=== PATIENT | female | born 1940 | race Caucasian/White ===

== ENCOUNTER 2020-01-11 12:48 | Emergency (ER) | payer BC, MEDICARE ==
[~2020-01-11] VITALS: Ht 154.9 cm; Wt 49.9 kg
[2020-01-11] MEDS ORDERED: CHOL-9 PO (13:02)
[2020-01-11] MEDS ORDERED: ALEN70SO3 PO (13:02)
[2020-01-11] MEDS ORDERED: ASPI81TA31 PO (13:02)
[2020-01-11] MEDS ORDERED: AMLO5TAB9 PO (13:02)
[2020-01-11] MEDS ORDERED: ATOR20TA PO (13:02)
[2020-01-11 13:27] LABS: BASOPHILS % (AUTO) 0.8 % (0.0-2.0); EOSINOPHILS # (AUTO) 0.1 K/uL (0.0-0.7); HEMATOCRIT 37.9 % (31.2-41.9); HEMOGLOBIN 12.6 g/dL (10.9-14.3); LYMPHOCYTES # (AUTO) 1.7 K/uL (20.0-40.0); LYMPHOCYTES % (AUTO) 29.6 % (20.5-51.5); MEAN CORPUSCULAR HEMOGLOBIN 30.6 uug (24.7-32.8); MEAN CORPUSCULAR HGB CONC 33 g/dL (32.3-35.6); MONOCYTES # (AUTO) 0.4 K/uL (2.0-10.0); MONOCYTES % (AUTO) 7.1 % (0.0-11.0); NEUTROPHILS # (AUTO) 3.6 K/uL (1.8-8.9); NEUTROPHILS % (AUTO) 60.5 % (38.5-71.5); PLATELET COUNT (AUTO) 177 K/uL (179-408); RED BLOOD CELL COUNT(AUTO) 4.12 MIL/uL (3.63-4.92); WHITE BLOOD COUNT (AUTO) 5.9 K/uL (3.8-11.8)
[2020-01-11 13:38] LABS: CREATININE 0.8 mg/dL (0.6-1.3); POTASSIUM 3.7 mmol/L (3.5-5.1)
--- NOTE | 2020-01-11 13:46 | NUR ---
PT IS IN ROOM #2A. DR ROSS EVALUATED THE PT.
[2020-01-11 13:53] LABS: BILIRUBIN,DIRECT 0.1 mg/dL (0.0-0.2); BILIRUBIN,TOTAL 0.4 mg/dL (0.2-1.0); TOTAL PROTEIN, SERUM 8.4 g/dL (6.4-8.2)
--- NOTE | 2020-01-11 14:38 | NUR ---
PT WAS D/C'dTO HOME. D/C INSTRUCTIONS GIVEN TO THE PT BY DR ROSS.
[2020-01-11 14:39] VITALS: BP 128/79
== END 2020-01-11 14:40 | disposition home or self-care (01) ==
LOC: ER 12:48
DX: R60.0 Localized edema (principal); R94.5 Abnormal results of liver function studies; Z79.82 Long term (current) use of aspirin; Z79.899 Other long term (current) drug therapy; E78.00 Pure hypercholesterolemia, unspecified; R79.89 Other specified abnormal findings of blood chemistry
CPT/HCPCS: 36415; 70030-TC; 71045; 85025; 85730; 93005; A4663